=== PATIENT | male | born 1975 | race Caucasian/White ===

== ENCOUNTER 2017-09-26 08:09 | Emergency (ER) | payer OTHER ==
[2017-09-26] MEDS ORDERED: FLUORESCEIN SODIUM 0.6 MG/WRAP ONE (08:35)
[2017-09-26] MEDS ORDERED: TETRACAINE HCL 0.5% 2ML OPTH ONE (08:35)
--- NOTE | 2017-09-26 08:55 | EDPHYS ---
Physician Documentation [facility] Name: Dimitri Sands Age: 42 yrs Sex: Male : 1975 Arrival Date: 09/26/2017 Time: 08:11 Bed 18 Private MD: ED Physician Antonino Mcwilliams HPI: 09/26 08:50 This 42 yrs old Male presents to ER via Ambulatory with complaints of Foreign mk Body In Eye. 08:50 The patient is experiencing decreased vision, foreign body sensation, pain, The patient mk sustained an abrasion. Onset: The symptoms/episode began/occurred 1 day(s) ago. Duration: the symptoms are continuous. Aggravated by blinking, closing eye, pressure, rubbing. Associated signs and symptoms: Pertinent positives: None. Patient wears glasses. Severity of symptoms: At their worst the symptoms were moderate severe in the emergency department the symptoms are unchanged. The patient has not experienced similar symptoms in the past. Historical: - Allergies: 08:17 TETRACYCLINES; rb1 - Home Meds: 08:13 escitalopram oxalate 10 mg oral tab 1 tab once daily [Active]; ss - PMHx: 08:13 Anxiety; ss - PSHx: 08:13 None; ss - Immunization history:: Last tetanus immunization: up to date. - Social history:: Smoking status: Patient/guardian denies using tobacco. - Family history:: not pertinent. ROS: 08:50 Constitutional: Negative for fever, chills, and weight loss, ENT: Negative for injury, mk pain, and discharge, Neck: Negative for injury, pain, and swelling, Cardiovascular: Negative for chest pain, palpitations, and edema, Respiratory: Negative for shortness of breath, cough, wheezing, and pleuritic chest pain, Abdomen/GI: Negative for abdominal pain, nausea, vomiting, diarrhea, and constipation, Back: Negative for injury and pain, : Negative for injury, bleeding, discharge, and swelling, MS/Extremity: Negative for injury and deformity, Skin: Negative for injury, rash, and discoloration, Neuro: Negative for headache, weakness, numbness, tingling, and seizure. 08:50 Eyes: Positive for foreign body sensation, pain, tearing. 08:50 ENT: Positive for Exam: 08:50 Constitutional: This is a well developed, well nourished patient who is awake, alert, mk and in no acute distress. Head/Face: Normocephalic, atraumatic. ENT: Nares patent. No nasal discharge, no septal abnormalities noted. Tympanic membranes are normal and external auditory canals are clear. Oropharynx with no redness, swelling, or masses, exudates, or evidence of obstruction, uvula midline. Mucous membranes moist. Neck: Trachea midline, no thyromegaly or masses palpated, and no cervical lymphadenopathy. Supple, full range of motion without nuchal rigidity, or vertebral point tenderness. No Meningismus. Chest/axilla: Normal chest wall appearance and motion. Nontender with no deformity. No lesions are appreciated. Cardiovascular: Regular rate and rhythm with a normal S1 and S2. No gallops, murmurs, or rubs. Normal PMI, no JVD. No pulse deficits. Respiratory: Lungs have equal breath sounds bilaterally, clear to auscultation and percussion. No rales, rhonchi or wheezes noted. No increased work of breathing, no retractions or nasal flaring. Abdomen/GI: Soft, non-tender, with normal bowel sounds. No distension or tympany. No guarding or rebound. No evidence of tenderness throughout. Back: No spinal tenderness. No costovertebral tenderness. Full range of motion. Male : Normal genitalia with no discharge or lesions. Skin: Warm, dry with normal turgor. Normal color with no rashes, no lesions, and no evidence of cellulitis. MS/ Extremity: Pulses equal, no cyanosis. Neurovascular intact. Full, normal range of motion. Neuro: Awake and alert, GCS 15, oriented to person, place, time, and situation. Cranial nerves II-XII grossly intact. Motor strength 5/5 in all extremities. Sensory grossly intact. Cerebellar exam normal. Normal gait. Psych: Awake, alert, with orientation to person, place and time. Behavior, mood, and affect are within normal limits. 08:50 Eyes: Periorbital structures: appear normal, Pupils: no acute changes, equal, round, and reactive to light and accomodation, Extraocular movements: intact throughout, Conjunctiva: injected, Corneas: abrasion, that is moderate sized, on the right, a fluorescein strip employed to appreciate the findings, Sclera: no appreciated abnormality, Anterior chamber: normal, Lids and lashes: appear normal, Nystagmus: is not appreciated. Vital Signs: 08:13 BP 140 / 91; Pulse 63; Resp 16; Pulse Ox 100% on R/A; Weight 97.52 kg; Height 6 ft. 4 ss in. (193.04 cm); Pain 10/10; 09:12 BP 129 / 87; Pulse 62; Resp 18; Pulse Ox 99% on R/A; Pain 6/10; rb1 08:13 Body Mass Index 26.17 (97.52 kg, 193.04 cm) ss MDM: 08:27 Patient medically screened. [facility] 08:53 Data reviewed: vital signs, nurses notes. [facility] Administered Medications: 09:03 Drug: Tetanus-Diphtheria Toxoid Adult 0.5 ml {Internet Specialist: [employer]. Exp: rb1 11/13/2019. Lot #: [id number]. } Route: IM; Site: right deltoid; 09:23 Follow up: Response: No adverse reaction rb1 09:03 Drug: [place] 10 mg-325 mg 1 tabs Route: PO; rb1 09:22 Follow up: Response: No adverse reaction rb1 09:03 Drug: Vigamox 0.5 % 2 drops Route: Ophthalmic; Site: right eye; rb1 09:12 Follow up: Response: No adverse reaction rb1 09:03 Drug: Cyclogyl Drops (1 %) 1 drops Route: Ophthalmic; Site: right eye; rb1 09:12 Follow up: Response: No adverse reaction rb1 Disposition: 09/26/17 08:54 Discharged to Home. Impression: Injury of conjunctiva and corneal abrasion without foreign body, Injury of conjunctiva and corneal abrasion without foreign body, right eye. - Condition is Stable. - Discharge Instructions: Corneal Abrasion, Corneal Abrasion, [id number]. - Prescriptions for Tylenol- Codeine #3 300-30 mg Oral Tablet - take 2 tablet by ORAL route every 6 hours As needed; 30 tablet. Vigamox 0.5 % Ophthalmic Drops - instill 1 drop by OPHTHALMIC route every 4 hours for 7 days; 5 milliliter. - Medication Reconciliation Form, Thank You Letter, Antibiotic Education, Prescription Opioid Use form. - Follow up: Efraín Lam MD; When: Upon discharge from the Emergency Department; Reason: Recheck today's complaints, Continuance of care, Re-evaluation by your physician. - Problem is new. - Symptoms have improved. Signatures: Antonino Mcwilliams MD MD cha Smirch, Shelby, RN RN ss Melissa Ceja, RN RN rb1
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
[2017-09-26] MEDS ORDERED: MOXIFLOXACIN HCL 0.5% 3ML OPTH OPTH SCH (09:00)
[2017-09-26] MEDS ORDERED: TETANUS & DIPHTHERIA TOX,ADULT 0.5 ML VIAL ONE (09:21)
[2017-09-26] MEDS ORDERED: CYCLOPENTOLATE 2% OPTH 2 ML ONE (09:21)
[2017-09-26] MEDS ORDERED: HYDROCODONE/APAP 10/325 TAB ONE (09:21)
== END 2017-09-26 09:25 | disposition home or self-care (01) ==
LOC: ER 08:09
DX: S05.01XA Injury of conjunctiva and corneal abrasion without foreign body, right eye, initial encounter (principal); F41.9 Anxiety disorder, unspecified; X58.XXXA Exposure to other specified factors, initial encounter; Z23 Encounter for immunization; Z88.1 Allergy status to other antibiotic agents
CPT/HCPCS: 90714; 99283